=== PATIENT | male | born 1945 | race Caucasian/White ===

== ENCOUNTER 2018-07-19 22:59 | Emergency (ER) | payer OTHER, MEDICAID ==
[2018-07-19 23:07] VITALS: Ht 167.6 cm
[2018-07-20 00:55] VITALS: BP 142/74
== END 2018-07-20 00:55 | disposition home or self-care (01) ==
LOC: ED 22:59
DX: M17.12 Unilateral primary osteoarthritis, left knee (principal); R60.0 Localized edema; I10 Essential (primary) hypertension; E11.9 Type 2 diabetes mellitus without complications
CPT/HCPCS: Q0092